=== PATIENT | female | born 1985 | race Caucasian/White ===

== ENCOUNTER 2016-11-21 09:06 | Day surgery (SDC) | payer OTHER ==
[~2016-11-21] VITALS: Ht 157.5 cm; Wt 90.7 kg
[~2016-11-21 09:06] MED LIST: MAGNESIUM400 M1 PO; NAPROSYN500 MG PO; NAPROXEN500 MG PO; PROZAC10 MG PO; TOPAMAX50 MG PO; TOPIRAMATE50 MG PO; VALIUM5 MG PO
== END 2016-11-21 11:46 | disposition home or self-care (01) ==
LOC: PAIN 09:06 → SDC 09:45 → PAIN 11:46
PROC: 3E0U33Z Introduction of Anti-inflammatory into Joints, Percutaneous Approach (ICD-10-PCS; principal; 2016-11-21)
DX: M47.898 Other spondylosis, sacral and sacrococcygeal region (principal); M53.3 Sacrococcygeal disorders, not elsewhere classified; F41.9 Anxiety disorder, unspecified; E66.9 Obesity, unspecified; M79.7 Fibromyalgia
CPT/HCPCS: J1030; J2250; J3010; S0020